=== PATIENT | male | born 1960 | race Caucasian/White ===

== ENCOUNTER → 2016-08-02 | Day surgery (SDC) | payer OTHER ==
[~2016-08-02] VITALS: Ht 172.7 cm; Wt 99.8 kg
[~2016-08-02] MED LIST: GABAPENTIN300 M2 PO; LISINOPRIL5 M1; LOVASTATIN40 M1; METFORMIN HCL500 M3
--- NOTE | 2016-08-02 13:39 | Operative Report ---
Operative/Inv Procedure Report Surgery Date: 08/02/16 Name of Procedure: Endoscopic sinus surgery with 1. Nasal polypectomy 2. Middle meatal antrotomy with polypoid tissue removal, bilateral 3. Total ethmoidectomy with polypoid tissue removal, bilateral 4. Nasofrontal duct exploration, with polypoid tissue removal, bilateral 5. Middle turbinate reduction, bilateral 6. Inferior turbinate submucous resection, bilateral Pre-Operative Diagnosis: 1. Nasal polyps 2. Chronic sinusitis, with sinonasal polyposis ethmoid, maxillary, frontal bilateral 3. Turbinate hypertrophy inferior and middle, bilateral Post-Operative Diagnosis: Same Estimated Blood Loss: less than 50ml Surgeon/[employer]ler Mill Tender: JANIA MORALES MD Anesthesia: general endotracheal tube Specimens: 1. Nasal fossae polyps, Sinus, ethmoid and maxillary polyps, middle and inferior turbinates, left 3. Nasal fossae polyps, Sinus, ethmoid and maxillary polyps, middle and inferior turbinates, right Complications: None Condition: Stable on leaving the OR Operative Indication: Difficulty breathing through the nose, nasal congestion x several years Chronic sinusitis with sinonasal polyposis x years Patient treated with multiple antibiotics, antihistamines, decongestants, steroid and antihistamine nasal sprays with limited improvement, with improvement but then recurrence Frequent facial pressures and headaches Operative/Procedure Note Note: The patient was brought to the operating room. Placed on the operating room table in supine position. At first timeout was performed identifying the patient, ID numbers and procedure to be performed. Next general oral endotracheal anesthesia was induced. Endotracheal tube was secured with tape over the last corner of the lip. Operating room table was rotated 90 to the left and patient was positioned for septal surgery with head slightly hyperextended and rotated to the right. At first vasoconstriction was carried by application of Afrin spray on cottonoid pledgets. Next nasal septum was injected with 1% lidocaine with 1: 100,000 epinephrine approximately 6 mL was injected on the right. During injection it appeared that the septum was markedly thinned out without cartilaginous support within the mid septum. The lower part of the septum was clear in the midline in the region of mid septum. There was a significant deviation of the septum at the ethmoid plate to the right. Judging from lock of quadrangular cartilage support within the midportion of the septum it appeared that patient had prior septal surgery and decision was made not to proceed with septoplasty for fear of septal perforation. At this point injection was carried into the middle meatus and middle turbinate on the left, with 1% lidocaine with 1 100,000 epinephrine. Approximately 6 mL of this solution was used followed by placement of cotton pledgets saturated with cocaine flakes and Afrin spray. Patient's face was then prepped and draped in routine manner and surgery was performed. Next prior to starting the endoscopic surgery surgery on the left, the right side was injected with 1% lidocaine with 1 100,000 epinephrine. Approximately 6 mL of this solution was used, followed by placement of cotton pledgets saturated with cocaine flakes and Afrin spray. Endoscopic sinus surgery was carried out, first on the left and then on the right. The surgery was carried with direct visualization with 0 and 30 scopes, and at 70 scope At first on the left, middle turbinate was reduced along its inferior border with Gruenwald forceps. Middle meatus was entered and a large polyp was removed which significantly relieved the obstruction. Then a foldable ethmoidectomy was carried. Polypoid tissue was removed from the anterior middle and posterior ethmoid air cells. The removal was done with straight and up turned to Mao-Blakesley forceps. Ethmoid air cells were obstructed with polypoid mucosa. There was significant bony thinning due to pressure necrosis of the polyps. Once ethmoidectomy was completed, nasal frontal duct was explored and polypoid tissue removed. Maxillary sinus ostium was explored. Uncinate process was left intact. Curved ball seeker was used to probe for the natural maxillary sinus ostium. The ostium was then dilated with curved suction. Polypoid tissue was removed. Next nasofrontal duct was explored and polypoid tissue removed.Surgery was completed on the left. Next surgery was carried on the right. Again the middle turbinate was reduced along its inferior border with Gruenwald forceps. Then totoal ethmoidectomy was carried. Both bone and mucosa were removed. The mucosa was polypoid and bone thinned out due to pressure necrosis from polypoid tissue. Total ethmoidectomy was completed, next maxillary sinus ostium was searched for. Curved ball seeker was used to search for the maxillary ostium. Ostium was dilated with a curved suction. Polypoid mucosa was removed. Thick secretions were suctioned. Next nasofrontal duct was explored and polypoid tissue removed. Sinus surgery was completed. Next inferior turbinates were then in and outfractured and excised in submucous manner. This was done with 0 scope visualization. Surgery was completed. Nasal packing was applied next. Gelfilm rolled up into a roll was placed into the middle meatus 2 pieces on each side, secured with 2-0 silk which was then taped to the cheeks with Steri-Strips. Nasal fossa was packed with Telfa saturated with Bactroban ointment. Telfa was stitched anteriorly with 2-0 silk to prevent posterior displacement. Surgery was completed. The patient was reawakened, extubated and taken to the recovery room in good condition. There were no complications. Estimated blood was was 30ml. Findings: 1. Nasal septum- high deviation to the right deviated to the Quadrangular cartilage mucosa markedly thinned out without quadrangular cartilage support indicating prior surgery, septoplasty was not carried for fear of septal perforation 2. Ethmoid sinuses- large polyps descending into the nasal fossae obstructing the middle and inferior meatus polypoid tissue 3. Maxillary sinuses- polypoid tissue and thickened secretions 4. Middle turbinates- hypertrophy with obstruction of the middle meatus bilateral 5. Inferior Turbinates- hypertrophy with obstruction of the inferior meatus Discharge Disposition: PACU
== END ==
LOC: STS 02:48
DX: J33.0 Polyp of nasal cavity (principal); J32.9 Chronic sinusitis, unspecified; J34.3 Hypertrophy of nasal turbinates; J34.2 Deviated nasal septum; R51 Headache; I10 Essential (primary) hypertension; E11.9 Type 2 diabetes mellitus without complications; Z79.84 Long term (current) use of oral hypoglycemic drugs
CPT/HCPCS: 88305; J0131; J0360; J0690; J1100; J2250